=== PATIENT | female | born 1985 | race Caucasian/White ===

== ENCOUNTER 2017-12-23 09:56 | Emergency (ER) | payer BC ==
[2017-12-23 10:03] VITALS: RESP 16; TEMP 98.6
--- NOTE | 2017-12-23 10:07 | EDPHY ---
H & P Stated Complaint: Poss allergic rx to sumatriptan 1 hr ago-lip swelling thrt tight Time Seen by Provider: 12/23/17 10:06 HPI/ROS: HPI: This is a 32-year-old female who presents with Chief Complaint: Poss allergic rx to sumatriptan 1 hr ago-lip swelling throat tight Location: Lip Quality: Swelling Duration: 1 hr prior to arrival Signs and Symptoms: no shortness of breath at rest, no shortness of breath on exertion, no cough, no chest pain, no palpitations, no wheezing, + throat feels tight, + lip swelling, no tongue swelling, no difficulty swallowing, no difficulty talking, no rash Timing: Acute Severity: moderate Context: Patient has a history of migraines and yellow jacket anaphylaxis presents with sudden onset within 15-30 minutes of ingestion of sumatriptan for having a migraine headache this morning. She took the sumatriptan 25 mg tablet approximately 1 hr prior to arrival. She reports that within 15-30 minutes her lower lip started to swell and her throat felt itchy and tight. She denies any shortness of breath/difficulty talking/difficulty swallowing/rash/respiratory distress/wheezing/tongue swelling. She took 25 mg of Benadryl 30 min prior to arrival with resolving symptoms. Patient reports that she has an EpiPen at home in her possession. Modifying Factors: see above Comment: ROS: see HPI Constitutional: No fever, no chills, no weight loss Eyes: No blurred vision Respiratory: No shortness of breath, no cough Cardiovascular: No chest pain, no palpitations, no lower extremity edema Gastrointestinal: No nausea, no vomiting, no diarrhea Genitourinary: No dysuria Extremities: No myalgias Neurologic: No weakness, no numbness Skin: No rashes Hematologic: No bruising, no bleeding MEDICAL/SURGICAL/SOCIAL HISTORY: Medical history: yellow jacket anaphylaxis, migraines Surgical history: Denies Social history: . CONSTITUTIONAL: Extremely polite and cooperative, adult white female, awake and alert, no obvious distress HEENT: Atraumatic and normocephalic, PERRL, EOMI. Tympanic membranes clear. Oropharynx clear, no postpharyngeal edema, uvula midline, no exudate and moist pink mucosa. Airway patent. No lymphadenopathy. No meningismus. Cardiovascular: Normal S1/S2, regular rate, regular rhythm, without murmur rub or gallop. PULMONARY/CHEST: Symmetrical and nontender. Clear to auscultation bilaterally. Good air movement. No accessory muscle usage. No upper airway transmitted sounds. ABDOMEN: Soft, nondistended, nontender, no rebound, no guarding, no peritoneal signs, no masses or organomegaly. No CVAT. EXTREMITIES: 2/2 pulses, strength 5/5, no deformities, no clubbing, no cyanosis or edema. NEUROLOGICAL: no focal neuro deficits. GCS 15. SKIN: Warm and dry, no erythema. no rash. Good capillary refill. Source: Patient Exam Limitations: No limitations - Personal History LMP (Females 10-55): 15-21 Days Ago Current Tetanus/Diphtheria Vaccine: Unsure Current Tetanus Diphtheria and Acellular Pertussis (TDAP): Unsure - Medical/Surgical History Hx Asthma: No Hx Chronic Respiratory Disease: No Hx Diabetes: No Hx Cardiac Disease: No Hx Renal Disease: No Hx Cirrhosis: No Hx Alcoholism: No Hx HIV/AIDS: No Hx Splenectomy or Spleen Trauma: No Other PMH: yellow jacket anaphylaxis. migraines - Social History Smoking Status: Never smoked Constitutional: Initial Vital Signs Temperature (C) 37.0 C 12/23/17 10:00 Heart Rate 63 12/23/17 10:00 Respiratory Rate 16 12/23/17 10:00 Blood Pressure 133/85 H 12/23/17 10:00 O2 Sat (%) 98 12/23/17 10:00 O2 Delivery Mode Room Air Allergies/Adverse Reactions: No Known Allergies Allergy (Unverified 12/23/17 10:00) Home Medications: Medication Instructions Recorded Acet/Caffeine/Buta Fioricet 1 each PO Q6 PRN #10 tab 12/23/17 [Fioricet (*)] Famotidine [Pepcid 20 MG (*)] 20 mg PO BID 3 Days tab 12/23/17 Medical Decision Making ED Course/Re-evaluation: Vital signs stable upon arrival. No signs of airway compromise/respiratory distress/angioedema/anaphylaxis. Will treat for migraine headache as well as allergic reaction. Given 1 L normal saline, IV Benadryl 25 mg, p.o. Pepcid, IV Toradol, IV Solu- Medrol Placed on continuous surveillance monitor. 1115: Reassessed patient who reports near complete relief of symptoms. Passed p.o. Trial. Asking to be discharged home. This patient was seen under the supervision of my secondary supervising physician. I evaluated care for this patient independently. Discussed this patient with Dr. Rayo who did not see the patient. Differential Diagnosis: Differential diagnosis includes but is not limited to medication side effect, allergic reaction, angioedema, anaphylaxis. - Data Points Medications Given: Discontinued Medications Diphenhydramine HCl (Benadryl Injection) 25 mg IVP EDNOW ONE Stop: 12/23/17 10:12 Last Admin: 12/23/17 10:16 Dose: 25 mg Famotidine (Pepcid) 40 mg PO EDNOW ONE Stop: 12/23/17 10:12 Last Admin: 12/23/17 10:17 Dose: 40 mg Sodium Chloride (Ns) 1,000 mls @ 0 mls/hr IV ONCE ONE; Wide Open PRN Reason: Protocol Stop: 12/23/17 10:12 Last Admin: 12/23/17 10:17 Dose: 1,000 mls Ketorolac Tromethamine (Toradol) 15 mg IVP/IM EDNOW ONE Stop: 12/23/17 10:12 Last Admin: 12/23/17 10:17 Dose: 15 mg Methylprednisolone Sodium Succinate (Solu-Medrol) 125 mg IVP EDNOW ONE Stop: 12/23/17 10:12 Last Admin: 12/23/17 10:17 Dose: 125 mg Departure - Departure Disposition: Home, Routine, Self-Care Clinical Impression: Allergic reaction to drug Qualifiers: Encounter type: initial encounter Qualified Code(s): T78.40XA - Allergy, unspecified, initial encounter Condition: Good Instructions: Anaphylaxis (ED), General Allergic Reaction (ED) Additional Instructions: Stop taking Sumatriptan and add to allergy list. Take Fioricet every 6 hr as needed for headache. Take Pepcid twice daily for the next 3 days. Take Benadryl 25-50 mg every 4-6 hours as needed for allergic reaction. Allergic Reaction: Return to the Emergency Department for lip, tongue, throat, or face swelling, or any trouble breathing or swallowing. Referrals: PCP Not In,Dictionary [Medical Doctor] - As per Instructions Prescriptions: Acet/Caffeine/Buta Fioricet [Fioricet (*)] 1 each PO Q6 PRN #10 tab PRN Reason: Headache Famotidine [Pepcid 20 MG (*)] 20 mg PO BID 3 Days tab
[2017-12-23] MEDS ORDERED: KETOROLAC 15 MG/1 ML SDV IVP/IM ONE (10:11)
[2017-12-23] MEDS ORDERED: FAMOTIDINE 20 MG TAB PO ONE (10:11)
[2017-12-23] MEDS ORDERED: NS 1,000 ML IV ONE (10:11)
[2017-12-23] MEDS ORDERED: methylPREDNISolone SOD SUCC 125 MG/2 ML VIAL IVP ONE (10:11)
[2017-12-23 11:23] VITALS: BP 119/78; PULSE 59; O2SAT 99
== END 2017-12-23 11:23 | disposition home or self-care (01) ==
DX: R22.0 Localized swelling, mass and lump, head (principal); T39.8X5A Adverse effect of other nonopioid analgesics and antipyretics, not elsewhere classified, initial encounter; E86.9 Volume depletion, unspecified
CPT/HCPCS: 96374; J1200; J1885; J2930